=== PATIENT | female | born 1945 | race African-American/Black ===

== ENCOUNTER 2018-02-07 17:54 | Emergency (ER) | payer OTHER ==
[~2018-02-07 17:54] MED LIST: ATENOLOL25 M1 PO; ATENOLOL25 MG PO; ATIVAN0.5 M1 PO; AUGMENTIN 400100 ML PO; AUGMENTIN 875-1 EACH PO; BIOTIN1000 MCG PO; CENTRUM SILVER1 TA1 PO; COLACE100 MG PO; DEXAMETHASONE2 M1 PO; DURAGESIC1 EACH TOP; GABAPENTIN600 M1 PO; GOOD SENSE ASPI81 M1 PO; HYDROCHLOROTHIA25 M1 PO; HYDROCODONE/ACE1 TA1 PO; LANSOPRAZOLE30 MG PO; MELATONIN3 M4 PO; MOTRIN IB200 M1 PO; ONDANSETRON HYDR8 MG PO; ONE-A-DAY ESSE1 EACH PO; PANTOPRAZOLE SO40 M1 PO; PERCOCET 325 MG1 TA2 PO; POLYETHYLE17 GM/Dos2 PO; PREVACID 30MG30 MG PO; PRIMIDONE50 M1 PO; PROCHLORPERAZIN10 M1 PO; REGLAN INJ10 MG/2 M1 PO; REGLAN5 MG/ML PO; SENNA PLUS TAB1 EACH PO; SLOW RELEASE I160 MG; TRAMADOL HCL50 MG PO; VITAMIN D250000 UNIT PO; ZOLPIDEM TART5 MG PO
--- NOTE | 2018-02-07 18:57 | ED CARDIAC/CP/PALPITATIONS ---
History of Present Illness General Chief Complaint: Chest Pain Stated Complaint: CP, FEVER, COUGH, BODY ACHES Source: patient, family, old records Exam Limitations: no limitations Vital Signs & Intake/Output Vital Signs & Intake/Output Vital Signs Date Time Temp Pulse Resp B/P B/P Pulse O2 O2 Flow FiO2 Mean Ox Delivery Rate 02/07 2250 98.1 78 20 98/54 95 Room Air 02/08 2028 96 Room Air 02/07 2021 100.0 76 20 121/60 95 Room Air 02/08 2012 102.9 02/07 1933 102.9 02/07 1841 103.0 90 20 151/74 96 Triage Nurses Notes Reviewed? yes Onset: Gradual Duration: day(s): Timing: recent history Quality/Severity: moderate Location: substernal Radiation: no radiation HPI: 72yo female with hx of aspiration PNA, previous gastric CA, HTN presents to ED complaining of malaise, dyspnea, body aches, fevers, chills, weakness 2 days. Patient reporting substernal chest burning sensation described as 6/10, without radiation beginning this morning. Patient also with episodes of nausea and vomiting this morning. Patient saw her cancer specialist on Monday for blood work however is unsure of results, daughter reports history of hypokalemia for which the patient has been taking potassium supplements for. Patient denies syncopal episode, headache, abdominal pain, diarrhea, constipation. (Larisa SIBLEY,Sherrie Montalvo) Allergies Coded Allergies: Penicillins (HIVES 02/07/18) diphenhydramine (From BENADRYL) (Intermediate, SEDATION 08/15/17) morphine (Intermediate, ITCHING 08/15/17) Reconcile Medications Acetaminophen (Acetaminophen ER) 650 MG TABLET.ER 1 TAB PO PRN PAIN (Reported ) Atenolol 25 MG TABLET 0.5 TAB PO DAILY BLOOD PRESSURE (Reported) Doxycycline Hyclate 100 MG CAPSULE 1 CAP PO BID ABX (Reported) Fentanyl (Duragesic) 25 MCG/HOUR PATCH.TD72 1 PAT TOP Q3D PAIN (Reported) Gabapentin 600 MG TABLET 1 TAB PO BID NEUROPATHY (Reported) Guaifenesin (Mucinex) 1,200 MG TAB.ER.12H 1 TAB PO PRN MUCUS (Reported) Hydrochlorothiazide 25 MG TABLET 1 TAB PO DAILY HBP (Reported) Ibuprofen (Motrin Ib) 200 MG TABLET 1 TAB PO DAILY PRN PAIN (Reported) Multivitamin (One-A-Day Essential) 1 EACH TABLET 1 TAB PO DAILY VITAMIN SUPPORT (Reported) Pantoprazole Sodium 40 MG TABLET.DR 1 TAB PO DAILY GI Potassium Chloride 20 MEQ TAB.ER.PRT 1 TAB PO BID SUPPLEMENT (Reported) (Low GUERRERO,Alf Green) Past History Travel History Traveled to [place] past 21 day No Medical History Any Pertinent Medical History? see below for history Cardiovascular: hypertension Respiratory: ASPIRATION PNEUMONIA Gastrointestinal: GERD Cancer(s): GASTRIC CA History of MRSA: No History of VRE: No History of CDIFF: No Surgical History Surgical History: GASTRICECTOMY Psychosocial History Who do you live with Family Services at Home None What is your primary language Barbadian Family History Hx Contributory? No (Sherrie Boyle) Review of Systems Review of Systems Constitutional: Reports: see HPI. EENTM: Reports: no symptoms. Respiratory: Reports: see HPI. Cardiovascular: Reports: see HPI. GI: Reports: see HPI. Genitourinary: Reports: no symptoms. Musculoskeletal: Reports: see HPI. Skin: Reports: no symptoms. Neurological/Psychological: Reports: no symptoms. Hematologic/Endocrine: Reports: no symptoms. Immunologic/Allergic: Reports: no symptoms. All Other Systems: Reviewed and Negative (Sherrie Boyle) Physical Exam Physical Exam General Appearance: well developed/nourished, no apparent distress, alert, awake Head: atraumatic, normal appearance Eyes: Bilateral: normal appearance. Ears, Nose, Throat: hearing grossly normal Neck: normal inspection, supple, full range of motion Respiratory: no respiratory distress, corse breath sounds bilateral lung bases Cardiovascular: regular rate/rhythm Gastrointestinal: normal bowel sounds, soft, no organomegaly, MILD tenderness RUQ, LUQ, RLQ, LLQ Back: normal inspection, normal range of motion Extremities: normal inspection, normal range of motion Neurologic/Psych: awake, alert, oriented x 3 Skin: intact, normal color, warm/dry Core Measures ACS in differential dx? Yes CVA/TIA Diagnosis No Sepsis Present: No Sepsis Focused Exam Completed? No (Sherrie Boyle) Progress Differential Diagnosis: AMI, atrial fibrillation, CHF/pulm edema, costochondritis, hyperventilation, musculoskeletal pain, myocarditis, pancreatitis, pericarditis, pneumonia, pneumothorax, pulmonary embolism, respiratory failure, sepsis, unstable angina Plan of Care: Orders Procedure Date/time Status CULTURE,URINE 02/07 1817 Active BLOOD CULTURE 02/07 1817 Active URINALYSIS 02/07 1817 Complete LACTIC ACID 02/07 1817 Complete RAPID VIRAL INFLUENZA A 02/07 1758 Complete TROPONIN LEVEL 02/07 1758 Complete COMPREHENSIVE METABOLIC PANEL 02/07 1758 Complete CBC WITHOUT DIFFERENTIAL 02/07 1758 Complete EKG 02/07 1757 Active Laboratory Tests 02/07/182116: Lactic Acid Cancelled 02/07/181956: Urine Color YEL, Urine Clarity CLEAR, Urine pH 7.0, Ur Specific Franklin 1.015, Urine Protein NEG, Urine Ketones NEG, Urine Nitrite NEG, Urine Bilirubin NEG, Urine Urobilinogen 0.2, Ur Leukocyte Esterase NEG, Ur Microscopic EXAM NOT REQUIRED, Urine Hemoglobin NEG, Urine Glucose NEG 02/07/181929: Lactic Acid 1.0 02/07/181929: Anion Gap 10, Estimated GFR > 60, BUN/Creatinine Ratio 22.9, Glucose 84, Calcium 9.0, Total Bilirubin 0.6, AST 27, ALT 22, Alkaline Phosphatase 90, Troponin I < 0.01, Total Protein 6.2 L, Albumin 3.4 L, Globulin 2.8, Albumin/Globulin Ratio 1.2, CBC w Diff NO MAN DIFF REQ, RBC 4.79, MCV 69.5 L, MCH 22.8 L, MCHC 32.8 L, RDW 15.6 H, MPV 8.8, Gran % 68.3, Lymphocytes % 19.3 L, Monocytes % 10.5 H , Eosinophils % 1.9, Basophils % 0, Absolute Granulocytes 3.5, Absolute Lymphocytes 1.0 L, Absolute Monocytes 0.5, Absolute Eosinophils 0.1, Absolute Basophils 0 Microbiology 02/07 2025 BLOOD: Blood Culture - RECD 02/07 2014 BLOOD: Blood Culture - RECD 02/07 1957 URINE ROUT: Urine Culture - RECD 02/08 1904 NASOPHARYN: Influenza Virus A & B Rapid Smear - COMP CXR does not show overt PNA. Patient medicated with motrine while awaiting IV access for IV antipyretics and fluids. Influenza swab is negative. Given patient's fever with symptoms of vomiting earlier today will obtain CT abdomen and pelvis to assess for intra-abdominal infectious process. The patient was signed out to Dr. Kelsey pending CT scan, labs. Diagnostic Imaging: Viewed by Me: Radiology Read. Discussed w/RAD: Radiology Read. Radiology Impression: PATIENT: SVETLANA CORRIGAN PRESENT AGE : 72 PATIENT ACCOUNT NO: [id number] : 45 LOCATION: ER ORDERING PHYSICIAN: Marcus SIBLEY SERVICE DATE: 02/07/18 EXAM TYPE: RAD - XRY- PORTABLE CHEST XRAY EXAMINATION: XR PORTABLE CHEST CLINICAL INFORMATION: Rule out pneumonia. Fever and weakness with chest pain. COMPARISON: Chest x-ray from 08/19/2017. TECHNIQUE: Portable frontal view of the chest was obtained. FINDINGS : There are nonspecific streaky linear markings in the mid lungs and lower lobes. The cardiac silhouette is mild prominent but stable. Mediastinal contours are within normal limits. The upper lung zones are clear. No pleural effusions are seen. No acute osseous abnormality is evident. IMPRESSION: Nonspecific streaky densities within both lungs. No consolidative airspace opacities. Stable cardiomegaly. No pleural effusions. DICTATED BY: Alf Logan MD DATE/TIME DICTATED:02/07/181857 VISUALIZATION DEVELOPER:BIMAL DATE/TIME TRANSCRIBED:1857 CONFIDENTIAL, DO NOT COPY WITHOUT APPROPRIATE AUTHORIZATION. < Electronically signed in Other Vendor System> SIGNED BY: Alf Logan MD 02/07/181903 Initial ED EKG: sinus rhythm @85bpm, artifact present, nonspecific ST changes Prior EKG: changed (08/15/17, slight t wave change) Hand-Off Endorsed To: Alf Kelsey MD Endorsed Time: 2008 Pending: CT, labs (Sherrie Boyle) Radiology Impression: PATIENT: SVETLANA CORRIGAN PRESENT AGE : 72 PATIENT ACCOUNT NO: [id number] : 45 LOCATION: [facility] ORDERING PHYSICIAN: Marcsu SIBLEY SERVICE DATE: 02/07/18 EXAM TYPE: RAD - XRY- PORTABLE CHEST XRAY EXAMINATION: XR PORTABLE CHEST CLINICAL INFORMATION: Rule out pneumonia. Fever and weakness with chest pain. COMPARISON: Chest x-ray from 08/19/2017. TECHNIQUE: Portable frontal view of the chest was obtained. FINDINGS : There are nonspecific streaky linear markings in the mid lungs and lower lobes. The cardiac silhouette is mild prominent but stable. Mediastinal contours are within normal limits. The upper lung zones are clear. No pleural effusions are seen. No acute osseous abnormality is evident. IMPRESSION: Nonspecific streaky densities within both lungs. No consolidative airspace opacities. Stable cardiomegaly. No pleural effusions. DICTATED BY: Alf Logan MD DATE/TIME DICTATED:02/07/181857 VISUALIZATION DEVELOPER:BIMAL DATE/TIME TRANSCRIBED:1857 CONFIDENTIAL, DO NOT COPY WITHOUT APPROPRIATE AUTHORIZATION. < Electronically signed in Other Vendor System> SIGNED BY: Alf Logan MD 02/07/18 190, PATIENT: SVETLANA CORRIGAN PRESENT AGE: 72 PATIENT ACCOUNT NO: [id number] : 45 LOCATION: [facility] ORDERING PHYSICIAN: Sherrie SIBLEY SERVICE DATE: 02/07/18 EXAM TYPE: CAT - CT ABD & PELVIS W IV CONTRAST EXAMINATION: CT ABDOMEN AND PELVIS WITH CONTRAST CLINICAL INFORMATION: Fever. Nausea. Vomiting. History of gastric cancer. COMPARISON: CT scan abdomen pelvis 06/27/[address] of the chest abdomen pelvis 01/19/2018 TECHNIQUE: Multidetector volumetric imaging was performed of the abdomen and pelvis following IV administration of 95 mL of Optiray 320 intravenous contrast. Sagittal and coronal reformatted images were obtained on the technologist's workstation. DLP: 305.32 mGy-cm FINDINGS: LUNG BASES: Heart size enlarged. Ascending aorta measures 3.5 cm transverse. There is mosaic attenuation of lung parenchyma the lung base. Mild bronchial wall thickening at the right and left lower lobes without bronchiectasis. No pleural effusion. LIVER, GALLBLADDER, AND BILIARY TREE: The liver is normal in size, shape, and attenuation. No focal hepatic lesion or biliary ductal dilatation is present. The gallbladder is unremarkable with no evidence of radiopaque gallstones, gallbladder wall thickening, or obvious pericholecystic inflammatory changes. PANCREAS: The pancreas is atrophic. No pancreatic mass. No acute change. SPLEEN: Unremarkable. ADRENAL GLANDS: Unremarkable. KIDNEYS AND URETERS: There are bilateral renal cysts. There is no renal or ureteral calculi. There is no hydronephrosis. BLADDER: Unremarkable. GASTROINTESTINAL TRACT: Status post gastric surgery. There is no acute change of the bowel. No bowel obstruction. No bowel wall thickening or edema. There is a moderate volume of stool throughout the colon. The appendix is normal. The small bowel loops are unremarkable. ABDOMINAL WALL: No significant hernia is appreciated. LYMPH NODES: Normal. VASCULAR: There is atherosclerotic vascular wall calcifications of aorta and iliac vessels without aneurysm. PELVIC VISCERA: Status post hysterectomy. No pelvic abnormality. OSSEOUS STRUCTURES: Unremarkable. IMPRESSION: 1. No acute abnormality CT scan abdomen or pelvis. 2. Status post gastric surgery. No acute abnormality of the bowel. 3. Status post hysterectomy. 4. Cardiomegaly. Aneurysmal dilatation of ascending aorta measuring 4.1 cm. DICTATED BY: Justino Vargas MD DATE/TIME DICTATED:02/07/182138 VISUALIZATION DEVELOPER:BIMAL DATE/TIME TRANSCRIBED:2138 CONFIDENTIAL, DO NOT COPY WITHOUT APPROPRIATE AUTHORIZATION. < Electronically signed in Other Vendor System> SIGNED BY: Justino Vargas MD 2150 (Low GUERRERO,Alf Green) Departure Departure Condition: Stable Referrals: Santhosh Workman MD (PCP/Family) Departure Forms: Customer Survey General Discharge Information (Larisa SIBLEY,Sherrie Montalvo) Departure Disposition: HOME OR SELF CARE Clinical Impression Primary Impression: Nausea & vomiting Qualifiers: Vomiting type: unspecified Vomiting Intractability: non-intractable Qualified Code: R11.2 - Nausea with vomiting, unspecified Secondary Impressions: Chest pain Qualifiers: Chest pain type: unspecified Qualified Code: R07.9 - Chest pain, unspecified Dyspnea Qualifiers: Dyspnea type: unspecified Qualified Code: R06.00 - Dyspnea, unspecified Fever Additional Instructions: FOLLOW UP WITH DR. WORKMAN RETURN IF SYMPTOMS WORSEN OR FOR ANY CONCERNS DRINK PLENTY OF FLUIDS TAKE TYLENOL NEEDED FOR THE FEVER PA/REFORESTATION WORKER Co-Sign Statement Statement: ED Attending supervision documentation- [X] I saw and evaluated the patient. I have also reviewed all the pertinent lab results and diagnostic results. I agree with the findings and the plan of care as documented in the PA's/REFORESTATION WORKER's documentation. [X] I have reviewed the ED Record and agree with the PA's/REFORESTATION WORKER's documentation. [] Additions or exceptions (if any) to the PAs/REFORESTATION WORKER's note and plan are summarized below: [] (Low GUERRERO,Alf Green) Critical Care Note Critical Care Note Critical Care Time: non-applicable (Larisa SIBLEY,Sherrie Montalvo)
--- NOTE | 2018-02-07 19:04 | RADIOLOGY REPORT ---
EXAMINATION: XR PORTABLE CHEST CLINICAL INFORMATION: Rule out pneumonia. Fever and weakness with chest pain. COMPARISON: Chest x-ray from 08/19/2017. TECHNIQUE: Portable frontal view of the chest was obtained. FINDINGS: There are nonspecific streaky linear markings in the mid lungs and lower lobes. The cardiac silhouette is mild prominent but stable. Mediastinal contours are within normal limits. The upper lung zones are clear. No pleural effusions are seen. No acute osseous abnormality is evident. IMPRESSION: Nonspecific streaky densities within both lungs. No consolidative airspace opacities. Stable cardiomegaly. No pleural effusions.
[2018-02-07 19:52] LABS: ABSOLUTE BASOPHIL COUNT 0 /CUMM (0.0-0.2); ABSOLUTE EOSINOPHIL COUNT 0.1 /CUMM (0.0-0.7); ABSOLUTE GRANULOCYTE CT 3.5 /CUMM (1.4-6.5); ABSOLUTE MONOCYTE COUNT 0.5 /CUMM (0.10-0.60); BASOPHIL % 0 % (0.0-2.0); EOSINOPHIL % 1.9 % (0-5); GRANULOCYTE % 68.3 % (42.2-75.2); HEMATOCRIT 33.3 % (37-47); MEAN CORPUSCULAR HGB 22.8 PG (27.0-31.0); MEAN CORPUSCULAR HGB CONC 32.8 G/DL (33.0-37.0); MEAN PLATELET VOLUME 8.8 FL (7.4-10.4); PLATELET COUNT 280 /CUMM (130-400); RBC DISTRIBUTION WIDTH 15.6 % (11.5-14.5); RED BLOOD CELL CT 4.79 /CUMM (4.20-5.40); WHITE BLOOD CELL COUNT 5.1 /CUMM (4.8-10.8)
[2018-02-07 19:55] LABS: MEAN CORPUSCULAR VOLUME 69.5 FL (81.0-99.0)
[2018-02-07] MEDS ORDERED: DOXYCYCLINE HY100 M2 PO (21:04)
[2018-02-07] MEDS ORDERED: POTASSIUM CHLO20 ME2 PO (21:04)
[2018-02-07] MEDS ORDERED: ACETAMINOPHEN650 M3 PO (21:05)
[2018-02-07] MEDS ORDERED: MUCINEX1200 M1 PO (21:06)
--- NOTE | 2018-02-07 21:51 | CT SCAN REPORT ---
EXAMINATION: CT ABDOMEN AND PELVIS WITH CONTRAST CLINICAL INFORMATION: Fever. Nausea. Vomiting. History of gastric cancer. COMPARISON: CT scan abdomen pelvis 06/27/[address] of the chest abdomen pelvis 01/19/2018 TECHNIQUE: Multidetector volumetric imaging was performed of the abdomen and pelvis following IV administration of 95 mL of Optiray 320 intravenous contrast. Sagittal and coronal reformatted images were obtained on the technologist's workstation. DLP: 305.32 mGy-cm FINDINGS: LUNG BASES: Heart size enlarged. Ascending aorta measures 3.5 cm transverse. There is mosaic attenuation of lung parenchyma the lung base. Mild bronchial wall thickening at the right and left lower lobes without bronchiectasis. No pleural effusion. LIVER, GALLBLADDER, AND BILIARY TREE: The liver is normal in size, shape, and attenuation. No focal hepatic lesion or biliary ductal dilatation is present. The gallbladder is unremarkable with no evidence of radiopaque gallstones, gallbladder wall thickening, or obvious pericholecystic inflammatory changes. PANCREAS: The pancreas is atrophic. No pancreatic mass. No acute change. SPLEEN: Unremarkable. ADRENAL GLANDS: Unremarkable. KIDNEYS AND URETERS: There are bilateral renal cysts. There is no renal or ureteral calculi. There is no hydronephrosis. BLADDER: Unremarkable. GASTROINTESTINAL TRACT: Status post gastric surgery. There is no acute change of the bowel. No bowel obstruction. No bowel wall thickening or edema. There is a moderate volume of stool throughout the colon. The appendix is normal. The small bowel loops are unremarkable. ABDOMINAL WALL: No significant hernia is appreciated. LYMPH NODES: Normal. VASCULAR: There is atherosclerotic vascular wall calcifications of aorta and iliac vessels without aneurysm. PELVIC VISCERA: Status post hysterectomy. No pelvic abnormality. OSSEOUS STRUCTURES: Unremarkable. IMPRESSION: 1. No acute abnormality CT scan abdomen or pelvis. 2. Status post gastric surgery. No acute abnormality of the bowel. 3. Status post hysterectomy. 4. Cardiomegaly. Aneurysmal dilatation of ascending aorta measuring 4.1 cm.
[2018-02-07 22:50] VITALS: BP 98/54
== END 2018-02-07 23:15 ==
LOC: ERH 17:54
PROVIDERS: Physician Assistant Medical
DX: R11.2 Nausea with vomiting, unspecified (principal); R07.89 Other chest pain; R06.00 Dyspnea, unspecified
CPT/HCPCS: 71045; 74177; 81003; 87040; 87086; 87804; 87804-59; 93005; 93010; 96374; J0131

== ENCOUNTER 2018-05-21 15:12 | Emergency (ER) | payer OTHER ==
[~2018-05-21] VITALS: Ht 154.9 cm; Wt 68.0 kg
[~2018-05-21 15:12] MED LIST changes: +ACETAMINOPHEN650 M3 PO; +DOXYCYCLINE HY100 M2 PO; +MUCINEX1200 M1 PO; +POTASSIUM CHLO20 ME2 PO
--- NOTE | 2018-05-21 16:33 | ULTRASOUND REPORT ---
EXAMINATION: US TRIPLEX OF LOWER EXTREMITIES, BILATERAL CLINICAL INFORMATION: Bilateral lower extremity pain and edema. Swelling. COMPARISON: None TECHNIQUE: Color-flow triplex imaging with spectral analysis and compression Doppler were performed on the lower extremities. FINDINGS: Respiratory variation, normal compression and augmented flow are noted throughout the lower extremities. The visualized common femoral vein, superficial femoral vein, profunda femoral vein, popliteal vein and midcalf peroneal and posterior tibial venous segments show no evidence of deep venous thrombosis. There is no Hall's cyst. IMPRESSION: No evidence of deep venous thrombosis involving the bilateral lower extremities.
--- NOTE | 2018-05-21 17:20 | ED UPPER/LOWER EXTREMITY COMPL ---
See Addendum History of Present Illness General Chief Complaint: Lower Extremity Problems Stated Complaint: SIB DR ALFORD FOR BILATERAL LEG SWELLING/PA Source: patient Exam Limitations: no limitations Vital Signs & Intake/Output Vital Signs & Intake/Output Vital Signs Date Time Temp Pulse Resp B/P B/P Pulse O2 O2 Flow FiO2 Mean Ox Delivery Rate 05/21 1832 98.2 76 18 126/84 98 Room Air 05/21 1543 96.3 18 130/64 92 Allergies Coded Allergies: Penicillins (HIVES 02/07/18) diphenhydramine (From BENADRYL) (Intermediate, SEDATION 08/15/17) morphine (Intermediate, ITCHING 08/15/17) Reconcile Medications Acetaminophen (Acetaminophen ER) 650 MG TABLET.ER 1 TAB PO PRN PAIN (Reported ) Atenolol 25 MG TABLET 0.5 TAB PO DAILY BLOOD PRESSURE (Reported) Doxycycline Hyclate 100 MG CAPSULE 1 CAP PO BID ABX (Reported) Fentanyl (Duragesic) 25 MCG/HOUR PATCH.TD72 1 PAT TOP Q3D PAIN (Reported) Gabapentin 600 MG TABLET 1 TAB PO BID NEUROPATHY (Reported) Guaifenesin (Mucinex) 1,200 MG TAB.ER.12H 1 TAB PO PRN MUCUS (Reported) Hydrochlorothiazide 25 MG TABLET 1 TAB PO DAILY HBP (Reported) Ibuprofen (Motrin Ib) 200 MG TABLET 1 TAB PO DAILY PRN PAIN (Reported) Multivitamin (One-A-Day Essential) 1 EACH TABLET 1 TAB PO DAILY VITAMIN SUPPORT (Reported) Oxycodone HCl/Acetaminophen (Percocet 5-325 MG Tablet) 5 MG-325 MG TABLET 1 TAB PO BID PRN PAIN Pantoprazole Sodium 40 MG TABLET.DR 1 TAB PO DAILY GI Potassium Chloride 20 MEQ TAB.ER.PRT 1 TAB PO BID SUPPLEMENT (Reported) Triage Note: PT STATES SHE HAS BEEN HAVING LEG SWELLING BILAT LOWER EXT. SINCE MONDAY. PT REPORTS INCREASED PAIN ALSO. DGT STATES SHE HAS HAD HER ELEVATE THEM BUT THE PAIN STILL CONT. PT CALLED PCP WHO WANTED TO EVALUATED TO R/O DVT Triage Nurses Notes Reviewed? yes Onset: Gradual Duration: getting worse Timing: remote history Severity: severe Severity Numbers: 8 HPI: Patient is a 72-year-old female who is 5 years in remission of stomach cancer and has a history of peripheral neuropathy on gabapentin who presents emergency room with a exacerbation of her chronic lower leg pain and states that she has swelling Patient is unrelieved with her fentanyl patch Patient denies any fever chills chest pain hemoptysis shortness of breath cough or redness of the skin. (Marcus Mcguire) Past History Travel History Traveled to [place] past 21 day No Medical History Any Pertinent Medical History? see below for history Cardiovascular: hypertension Respiratory: ASPIRATION PNEUMONIA Gastrointestinal: GERD Cancer(s): GASTRIC CA History of MRSA: No History of VRE: No History of CDIFF: No Surgical History Surgical History: GASTRICECTOMY Psychosocial History Who do you live with Family Services at Home None What is your primary language Nauruan Tobacco Use: Quit >30 days ago ETOH Use: denies use Illicit Drug Use: denies illicit drug use Family History Hx Contributory? No (Marcus Mcguire) Review of Systems Review of Systems Constitutional: Reports: no symptoms. EENTM: Reports: no symptoms. Respiratory: Reports: no symptoms. Cardiovascular: Reports: no symptoms. Gastrointestinal/Abdominal: Reports: no symptoms. Genitourinary: Reports: no symptoms. Musculoskeletal: Reports: see HPI. Skin: Reports: no symptoms. Neurological/Psychological: Reports: no symptoms. Hematologic/Endocrine: Reports: no symptoms. Immunological: Reports: no symptoms. All Other Systems: Reviewed and Negative (Marcus Mcguire) Physical Exam Physical Exam General Appearance: no apparent distress, alert, comfortable Head: atraumatic Eyes: Bilateral: normal appearance. Ears, Nose, Throat: normal pharynx, normal ENT inspection Cardiovascular/Respiratory: regular rate/rhythm, no respiratory distress Peripheral Pulses: 2+ dorsalis pedis (R), 2+ dorsalis pedis (L) Neurologic/Tendon: normal sensation, normal motor functions, normal tendon functions, responds to pain, no evidence tendon injury Skin: intact, normal color, warm/dry Comments: Bilateral lower extremity myotomes dermatomes intact Trace nonpitting edema of the feet (Marcus Mcguire) Progress Differential Diagnosis: arterial insufficiency, cellulitis, CHF, compartment syndrome, contusion, dislocation, DVT, gout, septic arthritis, sprain, tendon injury Plan of Care: Current Medications Sig/Armani Start time Last Medication Dose Stop Time Status Admin Oxycodone/ 1 TAB ONCE ONE 05/21 1830 UNVr Acetaminophen 05/21 1831 (Percocet) Patient is neurovascular intact to rule out lower extremities DVT was unremarkable for DVT. Due to history of present illness exam pharynx patient has suspicion of peripheral neuropathy versus claudication. No signs of infectious process patient denies any cardiovascular symptoms Diagnostic Imaging: Viewed by Me: Ultrasound. Radiology Impression: no acute abnormality Comments: PATIENT: SVETLANA CORRIGAN PRESENT AGE: 72 PATIENT ACCOUNT NO: [id number] : 45 LOCATION: [facility] ORDERING PHYSICIAN: Marcus SIBLEY SERVICE DATE: 05/21/18 EXAM TYPE: US - US-EXT BILAT VENOUS DOPPLER EXAMINATION: US TRIPLEX OF LOWER EXTREMITIES, BILATERAL CLINICAL INFORMATION: Bilateral lower extremity pain and edema. Swelling. COMPARISON: None TECHNIQUE: Color-flow triplex imaging with spectral analysis and compression Doppler were performed on the lower extremities. FINDINGS: Respiratory variation, normal compression and augmented flow are noted throughout the lower extremities. The visualized common femoral vein, superficial femoral vein, profunda femoral vein, popliteal vein and midcalf peroneal and posterior tibial venous segments show no evidence of deep venous thrombosis. There is no Hall's cyst. IMPRESSION: No evidence of deep venous thrombosis involving the bilateral lower extremities. DICTATED BY: Timur Neff MD DATE/TIME DICTATED:05/21/181628 SWATCH MAKER:BIMAL DATE/TIME TRANSCRIBED:05/21/181628 (Marcus Mcguire) Departure Departure Disposition: HOME OR SELF CARE Condition: Stable Clinical Impression Primary Impression: Leg pain Referrals: Santhosh Alford MD (PCP/Family) Dharmesh GUERRERO,Cash Lewis Additional Instructions: Follow-up this week with your primary care doctor for a buildings painter referral or call buildings painter . If symptoms worsen or if you develop any new concerning symptom return to emergency room. Continue all medications as directed Begin the prescription of Percocet for pain, prescriptions waiting a [facility] Departure Forms: Customer Survey General Discharge Information Prescriptions: Current Visit Scripts Oxycodone HCl/Acetaminophen (Percocet 5-325 MG Tablet) 1 TAB PO BID PRN PAIN #10 TAB (Marcus Mcguire) PA/COTTON BALL MACHINE TENDER Co-Sign Statement Statement: ED Attending supervision documentation- [X] I saw and evaluated the patient. I have also reviewed all the pertinent lab results and diagnostic results. I agree with the findings and the plan of care as documented in the PA's/COTTON BALL MACHINE TENDER's documentation. [] I have reviewed the ED Record and agree with the PA's/COTTON BALL MACHINE TENDER's documentation. [] Additions or exceptions (if any) to the PAs/COTTON BALL MACHINE TENDER's note and plan are summarized below: [] (Kev Woody DO)
[2018-05-21] MEDS ORDERED: PERCOCET 5-3251 EACH PO (18:25)
[2018-05-21 18:32] VITALS: BP 126/84
[2018-05-22] MEDS ORDERED: OXYCODONE HCL5 M1 PO (10:47)
== END 2018-05-21 18:32 ==
LOC: ERH 15:12
DX: M79.604 Pain in right leg (principal); M79.605 Pain in left leg; M79.89 Other specified soft tissue disorders
CPT/HCPCS: 93970